=== PATIENT | female | born 1995 | race Caucasian/White ===

== ENCOUNTER 2023-03-04 14:42 | Inpatient (IN) | payer MEDICAID ==
[~2023-03-04] VITALS: Ht 160 cm; Wt 63.5 kg
[2023-03-04] MEDS ORDERED: HALOPERIDOL 5 MG TABLET PO PRN (15:15)
[2023-03-04 16:45] VITALS: BP 122/82
[2023-03-04 16:50] LABS: GLUCOMETER DEV NAME(LOC) POC.BV
[2023-03-05 01:20] VITALS: BP 122/76
[2023-03-05] MEDS: LORazepam 2 MG TABLET PO PRN ×3 (01:25→21:25)
[2023-03-05] MEDS: ZOLPIDEM TARTRATE 10 MG TABLET PO PRN (01:25)
[2023-03-05] MEDS ORDERED: MAG HYDROX/AL HYDROX/SIMETH ES 30 ML SUSPENSION UDCUP PO PRN (06:45)
[2023-03-05] MEDS ORDERED: IBUPROFEN 400 MG TABLET PO PRN (06:45)
[2023-03-05] MEDS ORDERED: GuaiFENesin/D-METHORPHAN [SUGAR-FREE] 200-20MG/10 ML SYRUP UDCUP PO PRN (06:45)
[2023-03-05] MEDS ORDERED: MAGNESIUM HYDROXIDE SUSPENSION 30 ML UDCUP PO PRN (06:45)
[2023-03-05] MEDS ORDERED: ACETAMINOPHEN 325 MG TABLET PO PRN (06:45)
[2023-03-05] MEDS ORDERED: ALBUTEROL SULFATE HFA 90 MCG/PUFF 8 GM INHALER IH PRN (06:45)
[2023-03-05] MEDS ORDERED: DOCUSATE SODIUM 100 MG CAPSULE PO PRN (06:45)
[2023-03-05] MEDS ORDERED: ONDANSETRON HCL 4 MG TABLET PO PRN (06:45)
[2023-03-05] MEDS ORDERED: CloNIDine HCL 0.1 MG TABLET PO PRN (06:45)
[2023-03-05] MEDS ORDERED: PETROLATUM,WHITE 28 GM JELLY TP PRN (06:45)
[2023-03-05] MEDS ORDERED: NICOTINE 14 MG/24 HOUR PATCH TD PRN (06:45)
[2023-03-05] MEDS ORDERED: LOPERAMIDE HCL 2 MG CAPSULE PO PRN (06:45)
[2023-03-05 08:31] LABS: BASOPHILS % (AUTO) 1.3 % (0.0-2.0); EOSINOPHILS % (AUTO) 3.2 % (1.0-6.0); HEMATOCRIT 33.8 % (36-46); HEMOGLOBIN 10.7 g/dL (12.0-16.0); LYMPHOCYTES # (AUTO) 2.9 K/uL (1.0-4.8); LYMPHOCYTES % (AUTO) 44.9 % (22.0-44.0); MEAN CORPUSCULAR HEMOGLOBIN 24.4 pg (26.0-34.0); MEAN CORPUSCULAR HGB CONC 31.5 G/dL (31.0-37.0); MEAN CORPUSCULAR VOLUME 77 fL (80-100); MONOCYTES # (AUTO) 0.5 K/uL (0.1-1.0); MONOCYTES % (AUTO) 7.6 % (2.0-9.0); NEUTROPHILS # (AUTO) 2.7 K/uL (1.8-7.7); PLATELET COUNT (AUTO) 653 K/uL (150-450); RED BLOOD CELL COUNT(AUTO) 4.37 MIL/uL (4.00-5.20); RED CELL DISTRIBUTION WIDTH 18.3 % (11.5-14.5)
[2023-03-05 08:49] LABS: HEMOGLOBIN A1C 4.5 % (3.8-5.6)
[2023-03-05 08:52] LABS: ALANINE AMINOTRANSFERASE 20 U/L (12-78); ALBUMIN 3.2 g/dL (3.4-5.0); ALKALINE PHOSPHATASE 67 U/L (46-116); ANION GAP 9 mmol/L (8-16); ASPARTATE AMINOTRANSFERASE 20 U/L (15-37); BILIRUBIN,TOTAL 0.3 mg/dL (0.1-1.0); CARBON DIOXIDE 24 mmol/L (22-29); CHLORIDE 105 mmol/L (98-107); CHOL/HDL RATIO 3.8 (3.9-5.7); CHOLESTEROL 202 mg/dL (131-200); CREATININE 1.02 mg/dL (0.60-1.30); FREE T4 (FREE THYROXINE) 1.37 ng/dL (0.76-1.46); GLOMERULAR FILTR. RATE CALC > 60 mL/min (>60); GLUCOSE,RANDOM 74 mg/dL (70-110); HCG,QUANTITATIVE 1 mIU/mL (0-6); HDL CHOLESTEROL 53 mg/dL (40-60); LDL CHOL (CALC.) 128 mg/dL (0-130); POTASSIUM 3.7 mmol/L (3.5-5.1); SODIUM SERUM 138 mmol/L (136-145); THYROID STIMULATING HORMONE 1.35 uIU/mL (0.36-3.74); TOTAL PROTEIN, SERUM 6.3 g/dL (6.4-8.2); TRIGLYCERIDES 105 mg/dL (15-150)
[2023-03-05] MEDS ORDERED: PredniSONE 5 MG TABLET PO SCH (09:00)
[2023-03-05] MEDS: HYDROXYCHLOROQUINE SULFATE 200 MG TABLET PO SCH ×2 (09:00→16:33)
[2023-03-05] MEDS: ENOXAPARIN SODIUM 60 MG/0.6 ML PF SYRINGE SQ SCH ×2 (09:58→21:13)
[2023-03-05 10:04] VITALS: BP 114/68
[2023-03-05 16:16] VITALS: BP 129/84
[2023-03-05] MEDS ORDERED: LURASIDONE HCL 60 MG TABLET PO SCH (17:00)
[2023-03-05 20:16] VITALS: BP 118/78
[2023-03-06 01:03] VITALS: BP 124/76
[2023-03-06] MEDS: ZOLPIDEM TARTRATE 10 MG TABLET PO PRN (01:37)
[2023-03-06 07:56] LABS: PROTHROMBIN TIME 10.6 SEC (9.4-11.6)
[2023-03-06] MEDS: HYDROXYCHLOROQUINE SULFATE 200 MG TABLET PO SCH (08:37)
[2023-03-06] MEDS: ENOXAPARIN SODIUM 60 MG/0.6 ML PF SYRINGE SQ SCH (08:39)
[2023-03-06] MEDS ORDERED: PredniSONE 10 MG TABLET PO SCH (09:00)
[2023-03-06] MEDS ORDERED: HYDR200T38 PO (11:37)
[2023-03-06] MEDS ORDERED: [UNRECOGNIZED DRUG - CODE] SQ (11:37)
[2023-03-06] MEDS ORDERED: LURA60TA PO (11:37)
[2023-03-06] MEDS ORDERED: PRED-729 PO (11:37)
[2023-03-06] MEDS ORDERED: LURA60TA4 PO (12:42)
[2023-03-06] MEDS: LORazepam 2 MG TABLET PO PRN (13:28)
== END 2023-03-06 16:27 | disposition home or self-care (01) | DRG 753 ==
LOC: B3A 15:33
PROVIDERS: ADMIT Psychiatry & Neurology Child & Adolescent Psychiatry; ATTEND Psychiatry & Neurology Child & Adolescent Psychiatry
DX: F31.4 Bipolar disorder, current episode depressed, severe, without psychotic features (principal); D68.69 Other thrombophilia; R45.851 Suicidal ideations; Z20.822 Contact with and (suspected) exposure to COVID-19; J45.909 Unspecified asthma, uncomplicated; M32.9 Systemic lupus erythematosus, unspecified; Z91.018 Allergy to other foods; Z88.2 Allergy status to sulfonamides; Z88.8 Allergy status to other drugs, medicaments and biological substances
CPT/HCPCS: 80053; 80061; 83036; 84436; 84439; 84443; 84702; 85025; 85610; 86592; G0480; J1650; Q9967